=== PATIENT | female | born 1990 | race Hispanic/Latino ===

== ENCOUNTER 2017-04-28 19:44 | Inpatient (IN) | payer MEDICAID ==
[~2017-04-28] VITALS: Ht 160 cm; Wt 74.8 kg
[~2017-04-28 19:44] MED LIST: IBUP-2070 PO; PREN1TAB89 PO
[2017-04-28] MEDS ORDERED: LACTATED RINGERS 1000ML IV STA (20:19)
[2017-04-28] MEDS ORDERED: LACTATED RINGERS 1000ML 1,000 ML IV PRN (20:19)
[2017-04-28 20:40] LABS: BILIRUBIN,URINE Negative (NEGATIVE); COLOR,URINE Yellow (YELLOW); GLUCOSE, URINE (UA) Negative (NEGATIVE); KETONES,URINE 15 mg/dL (NEGATIVE); LEUKOCYTE ESTERASE ,URINE Trace (NEGATIVE); NITRATE,URINE Negative (NEGATIVE); OCCULT BLOOD,URINE Negative (NEGATIVE); PH,URINE 6.5 (5.0-8.0); PROTEIN,URINE Negative (NEGATIVE)
[2017-04-28 20:41] LABS: APPEARANCE,URINE SLIGHTLY CLOUDY (CLEAR)
[2017-04-28 20:52] LABS: BACTERIA,URINE Rare /HPF (None Seen); RBC,URINE 0-1 /HPF (0-1); SQUAMOUS EPITHELIAL CELL,UR Few /LPF (0-2)
[2017-04-28] MEDS ORDERED: LACTATED RINGERS 1000ML 1,000 ML IV ONE (20:55)
[2017-04-28] MEDS ORDERED: OXYTOCIN 10 USP UNITS/ML ONE (20:56)
[2017-04-28 20:59] LABS: HEMATOCRIT 30.6 % (36-48); MEAN CORPUSCULAR HEMOGLOBIN 27.1 pg (27.0-33.0); MEAN CORPUSCULAR HGB CONC 32.6 g/dL (32.0-36.0); MEAN CORPUSCULAR VOLUME 83.1 fL (79-99); PLATELET COUNT (AUTO) 212 K/uL (130-400); RED BLOOD CELL COUNT(AUTO) 3.68 MIL/uL (4.00-5.50); WHITE BLOOD COUNT (AUTO) 11.7 K/uL (4.8-10.8)
[2017-04-28] MEDS ORDERED: PNV1TABL75 PO (20:59)
[2017-04-28 21:00] VITALS: BP 114/59
[2017-04-28] MEDS ORDERED: NALOXONE HCL 0.4 MG/1 ML ML IV PRN (21:00)
[2017-04-28] MEDS ORDERED: LACTATED RINGERS 500 ML 500 ML IV PRN (21:00)
[2017-04-28] MEDS ORDERED: ROPIVACAINE 0.2%200ML EPIDURAL 200 ML EP SCH (21:00)
[2017-04-28] MEDS ORDERED: EPHEDRINE SULFATE 50 MG/ML AMPULE IVP PRN (21:00)
[2017-04-28] MEDS: LACTATED RINGERS 1000ML 1,000 ML IV SCH (21:24)
[2017-04-28] MEDS ORDERED: OXYTOCIN 10 USP UNITS/ML 20 UNIT in LACTATED RINGERS 1000ML 1,000 ML IV SCH (21:30)
[2017-04-28] MEDS ORDERED: BUTORPHANOL TARTRATE 2 MG/ML IVP STA (22:58)
[2017-04-28] MEDS ORDERED: BUTORPHANOL TARTRATE 2 MG/ML ONE (23:07)
[2017-04-29] VITALS (7 sets, daily range): BP systolic 103–127; BP diastolic 57–86
[2017-04-29] MEDS ORDERED: ACETAMINOPHEN 325 MG TAB PO PRN (00:15)
[2017-04-29] MEDS ORDERED: WITCH HAZEL 1 PAD TP PRN (00:15)
[2017-04-29] MEDS ORDERED: LANOLIN 30GM OINTMENT TP PRN (00:15)
[2017-04-29] MEDS ORDERED: BENZOCAINE/LANOLIN/ALOE VERA 60 ML AEROSOL TP PRN (00:15)
[2017-04-29] MEDS ORDERED: DIPH,PERTUSS(ACELL),TET VAC/PF 0.5 ML VIAL IM PRN (00:15)
[2017-04-29] MEDS ORDERED: MEASLES/MUMPS/RUBELLA VACCINE, LIVE 0.5 ML/VIAL SQ PRN (00:15)
[2017-04-29] MEDS: OXYTOCIN-LR 20 UNITS/1000 ML 1,000 ML IV SCH (00:15)
[2017-04-29] MEDS ORDERED: IBUPROFEN 600 MG TABLET ONE (00:19)
[2017-04-29] MEDS ORDERED: LACTATED RINGERS 1000ML 1,000 ML IV ONE (01:12)
[2017-04-29] MEDS ORDERED: OXYTOCIN 10 USP UNITS/ML ONE (01:12)
[2017-04-29] MEDS: LACTATED RINGERS 1000ML 1,000 ML IV SCH ×2 (05:30→13:30)
[2017-04-29 08:14] LABS: RAPID PLASMA REAGIN NONREACTIVE (NONREACTIVE)
[2017-04-29] MEDS: DOCUSATE SODIUM 100 MG CAP PO SCH ×2 (09:00→20:53)
[2017-04-29] MEDS: IBUPROFEN 600 MG TABLET PO PRN ×2 (09:19→16:31)
[2017-04-30] MEDS: OXYTOCIN-LR 20 UNITS/1000 ML 1,000 ML IV SCH (00:15)
[2017-04-30] MEDS: IBUPROFEN 600 MG TABLET PO PRN ×2 (03:04→09:31)
[2017-04-30 03:24] VITALS: BP 123/70
[2017-04-30] MEDS: LACTATED RINGERS 1000ML 1,000 ML IV SCH (05:30)
[2017-04-30 06:52] LABS: HEMATOCRIT 30.8 % (36-48); MEAN CORPUSCULAR HEMOGLOBIN 27.8 pg (27.0-33.0); MEAN CORPUSCULAR HGB CONC 32.9 g/dL (32.0-36.0); MEAN CORPUSCULAR VOLUME 84.4 fL (79-99); PLATELET COUNT (AUTO) 200 K/uL (130-400); RED BLOOD CELL COUNT(AUTO) 3.65 MIL/uL (4.00-5.50); RED CELL DISTRIBUTION WIDTH 14.9 % (11.0-15.5); WHITE BLOOD COUNT (AUTO) 12.9 K/uL (4.8-10.8)
[2017-04-30 07:23] LABS: HEPATITIS Bs ANTIGEN SCREEN P Negative (Negative)
[2017-04-30 07:33] VITALS: BP 117/74
[2017-04-30] MEDS: DOCUSATE SODIUM 100 MG CAP PO SCH (09:14)
[2017-04-30 11:15] VITALS: BP_SYST 119; BP_SYST 136; BP_DIAS 63; BP_DIAS 79
== END 2017-04-30 12:35 | disposition home or self-care (01) | DRG 560 ==
LOC: LDH 19:44 → WSH 04-29 01:25
PROVIDERS: ADMIT Obstetrics & Gynecology; ATTEND Obstetrics & Gynecology
PROC: 10E0XZZ Delivery of Products of Conception, External Approach (ICD-10-PCS; principal; 2017-04-28)
PROC: 0HQ9XZZ Repair Perineum Skin, External Approach (ICD-10-PCS; 2017-04-28)
PROC: 00HU33Z Insertion of Infusion Device into Spinal Canal, Percutaneous Approach (ICD-10-PCS; 2017-04-28)
PROC: 3E0R3BZ Introduction of Anesthetic Agent into Spinal Canal, Percutaneous Approach (ICD-10-PCS; 2017-04-28)
PROC: 3E0234Z Introduction of Serum, Toxoid and Vaccine into Muscle, Percutaneous Approach (ICD-10-PCS; 2017-04-29)
DX: O69.81X0 Labor and delivery complicated by cord around neck, without compression, not applicable or unspecified (principal); O70.0 First degree perineal laceration during delivery; Z37.0 Single live birth; Z3A.38 38 weeks gestation of pregnancy; Z23 Encounter for immunization
CPT/HCPCS: 36415; 81001; 85027; 86592; 86701; 86850; 86900; 86901; 87340; 87390; 90715; A4314; J0595; J2590; J7120